=== PATIENT | female | born 1950 | race Hispanic/Latino ===

== ENCOUNTER 2020-05-24 12:48 | Outpatient (CLI) | payer MEDICARE, OTHER ==
--- NOTE | 2020-05-25 15:28 | Mammography Report ---
LEFT DIGITAL DIAGNOSTIC MAMMOGRAM WITH CAD CONVENTIONAL, 05/24/2020 LEFT LIMITED BREAST ULTRASOUND CLINICAL INFORMATION / INDICATION: Abnormalities reported on outside imaging TECHNIQUE: Digital left mammographic imaging was performed. Limited ultrasound was performed. This ex amination was interpreted with the benefit of Computer-Aided Detection (CAD) analysis. COMPARISON: Outside mammogram 11/26/2019 and 02/20/2018; outside bilateral breast ultrasound 12/17/2019 images reviewed but project very poorly for comparison in our PACS FINDINGS: Breast Density: There are scattered areas of fibroglandular density. MAMMOGRAPHIC FINDINGS: No dominant mass, suspicious calcifications, or architectural distortion in th e left breast. Minimal central density is not significantly changed. ULTRASOUND FINDINGS: Targeted ultrasound evaluation was performed of the area of interest. In the 1 1:00 position, 3 cm from the nipple, a minimal hypoechoic possible nodule is seen which is wider than tall and measures only 4 mm in greatest diameter. No shadowing or vascularity are seen. On prior out side study, difficult to compare due to low-resolution projection of these images on our PACS, in the left breast at 12:00, 7 cm from the nipple, a small hypoechoic ovoid area was seen which is not dete cted today. IMPRESSION: Minimal nodule is seen on the left which mammographically is stable from November and thought unlikely to be significant. Follow up recommendation: Follow-up left breast ultrasound and bilateral mammogram in 6 months BI-RADS Category 3: Probably Benign. Followup in 6 months. A "normal" or negative report should not discourage follow up or biopsy of a clinically significant f inding. A written summary of these findings will be mailed to the patient. The patient will be entered into a mammography reporting system which will generate a reminder letter for the patient's next appointmen t at the appropriate interval. According to the [employer], yearly mammograms are recommended starting at age 40 and continuing as long as a woman is in good health. Breast MRI is recommended for women with an rafy roximately 20-25% or greater lifetime risk of breast cancer, including women with a strong family his tory of breast or ovarian cancer and women who have been treated for Hodgkin's disease. Signer Name: Abhijeet Ya MD Signed: 05/25/2020 3:23 PM Workstation Name: [id number]
== END 2020-05-24 12:49 | disposition home or self-care (01) ==
LOC: SPVWC 12:48
PROVIDERS: ATTEND Surgery
DX: N63.20 Unspecified lump in the left breast, unspecified quadrant (principal); R92.8 Other abnormal and inconclusive findings on diagnostic imaging of breast